=== PATIENT | male | born 1975 | race Hispanic/Latino ===

== ENCOUNTER 2017-09-12 00:21 | Emergency (ER) | payer MEDICAID, OTHER | END 2017-09-12 01:49 | disposition home or self-care (01) | LOC: EDH 00:21 | DX: R51 Headache (principal); I10 Essential (primary) hypertension; I87.2 Venous insufficiency (chronic) (peripheral); R21 Rash and other nonspecific skin eruption; E78.5 Hyperlipidemia, unspecified | CPT/HCPCS: 99281 ==